=== PATIENT | male | born 1970 ===

== ENCOUNTER → 2017-07-10 | Outpatient (CLI) | payer SELFPAY ==
[~2017-07-10] MED LIST: Bactrim Ds Tab1 EACH PO; CEPH500; OTC VITAMINS
== END | disposition home or self-care (01) ==
LOC: LAB SHORT 12:55 → LAB 12:55
DX: N39.0 Urinary tract infection, site not specified (principal)
CPT/HCPCS: 87086

== ENCOUNTER 2017-07-12 21:50 | Emergency (ER) | payer MEDICARE, BC ==
[~2017-07-12] VITALS: Ht 188 cm; Wt 81.7 kg
[2017-07-12] MEDS ORDERED: OTC VITAMINS (21:58)
[2017-07-12] MEDS ORDERED: CEPH500 (23:13)
[2017-07-12] MEDS ORDERED: Bactrim Ds Tab1 EACH PO (23:33)
== END 2017-07-12 23:48 | disposition home or self-care (01) ==
LOC: ER 21:50
DX: L89.151 Pressure ulcer of sacral region, stage 1 (principal); F17.210 Nicotine dependence, cigarettes, uncomplicated; Z88.8 Allergy status to other drugs, medicaments and biological substances
CPT/HCPCS: 99282

== ENCOUNTER 2017-07-27 00:20 | Day surgery (SDC) | payer MEDICARE, BC | END 2017-07-27 23:07 | disposition home or self-care (01) | LOC: WOUND 00:20 | DX: Z48.00 Encounter for change or removal of nonsurgical wound dressing (principal); L89.153 Pressure ulcer of sacral region, stage 3; F17.218 Nicotine dependence, cigarettes, with other nicotine-induced disorders | CPT/HCPCS: G0463 ==